=== PATIENT | female | born 1955 | race Caucasian/White ===

== ENCOUNTER → 2020-11-25 | Outpatient (CLI) | payer OTHER | LOC: MRI 11-21 13:00 | DX: D35.2 Benign neoplasm of pituitary gland (principal); G35 Multiple sclerosis | CPT/HCPCS: 36415; 70553; 82565; A9577 ==

== ENCOUNTER → 2021-11-03 | Outpatient (CLI) | payer MEDICARE, OTHER ==
[~2021-11-03] MED LIST: PLAVIX 75 MG TA75 MG PO
== END ==
LOC: MRI 07:31
DX: G35 Multiple sclerosis (principal); D35.2 Benign neoplasm of pituitary gland
CPT/HCPCS: 36415; 70553; 82565; A9577

== ENCOUNTER 2021-11-04 13:28 | Emergency (ER) | payer MEDICARE, OTHER ==
[2021-11-04 17:07] LABS: HEMOGLOBIN 14.7 gm/dl (12.3-15.3); RED BLOOD COUNT 4.97 M/UL (4.00-5.10); WHITE BLOOD COUNT 6.7 K/UL (4.5-11.0)
[2021-11-04 17:29] LABS: BUN/CREATININE RATIO 14 (0-10)
[2021-11-04] MEDS ORDERED: PLAVIX 75 MG TA75 MG PO (17:44)
== END 2021-11-04 18:37 | disposition home or self-care (01) ==
LOC: ER1 13:28
PROVIDERS: Physician Assistant Medical
DX: I63.9 Cerebral infarction, unspecified (principal); E78.5 Hyperlipidemia, unspecified; I10 Essential (primary) hypertension; Z79.82 Long term (current) use of aspirin; Z88.0 Allergy status to penicillin; Z88.5 Allergy status to narcotic agent
CPT/HCPCS: ECHO; 70496; 70498; 80053; 82550; 82553; 84484; 85025; 85610; 93005; 93306; 99284; Q9967